=== PATIENT | female | born 1995 | race Caucasian/White ===

== ENCOUNTER → 2017-05-01 | Outpatient (CLI) | payer BC | LOC: FIMAGING 13:14 | PROVIDERS: ATTEND Midwife | DX: R10.2 Pelvic and perineal pain (principal); Z97.5 Presence of (intrauterine) contraceptive device ==

== ENCOUNTER → 2017-09-14 | Outpatient (CLI) | payer BC | LOC: BMCIMAGING 11:32 | PROVIDERS: ATTEND Family Medicine | DX: S89.92XA Unspecified injury of left lower leg, initial encounter (principal); X50.0XXA Overexertion from strenuous movement or load, initial encounter ==

== ENCOUNTER → 2017-09-18 | Outpatient (CLI) | payer BC | LOC: FIMAGING 18:50 | PROVIDERS: ATTEND Family Medicine | DX: M76.52 Patellar tendinitis, left knee (principal) ==